=== PATIENT | female | born 1975 | race Hispanic/Latino ===

== ENCOUNTER 2018-10-23 10:37 | Outpatient (CLI) | payer OTHER ==
--- NOTE | 2018-10-23 12:44 | ULT ---
PELVIC ULTRASOUND: 10/23/18 Transabdominal and endovaginal ultrasound of pelvis performed. INDICATION: Pelvic pain. Vaginal bleeding. Uterus size and appearance appears within upper normal range measuring at 9.8 x 4.3 x 5.2 cm. The analisa metrium is heterogeneous. At least one uterine fibroid is identified in the uterine fundus measuring 3 to 3.5 cm. The endometrium is upper normal thickness measured at 8 to 10 mm and is mildly heterogeneous. There is a left ovarian cyst measuring up to 2.5 cm. Both ovaries otherwise unremarkable. Color Doppl er and spectral analysis demonstrates blood flow to both ovaries. IMPRESSION: 1. Mildly prominent heterogeneous uterus with at least one uterine fibroid identified. 2. Endometrium is upper normal thickness and mildly heterogeneous. 3. Left ovarian cyst. POS: [facility]
== END 2018-10-23 10:38 | disposition home or self-care (01) ==
LOC: BICULT 10:37
PROVIDERS: ATTEND Family Medicine
DX: R10.2 Pelvic and perineal pain (principal); N93.0 Postcoital and contact bleeding; N83.202 Unspecified ovarian cyst, left side; R93.89 Abnormal findings on diagnostic imaging of other specified body structures
CPT/HCPCS: 76856